=== PATIENT | female | born 1980 | race Caucasian/White ===

== ENCOUNTER → 2019-10-01 13:52 | Outpatient (BNVA) | payer BC, SELFPAY | PROVIDERS: Family Provider Family Medicine; PCP Family Medicine; Visit Provider Nurse Practitioner | DX: F33.2 Major depressive disorder, recurrent severe without psychotic features (principal); F41.1 Generalized anxiety disorder | CPT/HCPCS: 99213 ==

== ENCOUNTER → 2019-12-12 12:37 | Outpatient (BNVA) | payer BC, SELFPAY | PROVIDERS: Family Provider Family Medicine; PCP Family Medicine; Visit Provider Counselor Professional | DX: F41.1 Generalized anxiety disorder (principal); F33.2 Major depressive disorder, recurrent severe without psychotic features | CPT/HCPCS: 90834 ==

== ENCOUNTER → 2019-12-23 09:42 | Outpatient (BNVA) | payer BC, SELFPAY | PROVIDERS: Family Provider Family Medicine; PCP Family Medicine; Visit Provider Family Medicine | DX: R19.7 Diarrhea, unspecified (principal); R73.9 Hyperglycemia, unspecified; E87.6 Hypokalemia; K52.9 Noninfective gastroenteritis and colitis, unspecified | CPT/HCPCS: 80053; 83036; 85025 ==

== ENCOUNTER → 2019-12-24 08:51 | Outpatient (BNVA) | payer BC, SELFPAY | PROVIDERS: Family Provider Family Medicine; PCP Family Medicine; Visit Provider Nurse Practitioner | DX: F41.1 Generalized anxiety disorder (principal); F33.2 Major depressive disorder, recurrent severe without psychotic features | CPT/HCPCS: 99213 ==

== ENCOUNTER → 2020-03-18 07:51 | Outpatient (BNVA) | payer BC, SELFPAY | PROVIDERS: Family Provider Family Medicine; PCP Family Medicine; Visit Provider Nurse Practitioner | DX: F33.2 Major depressive disorder, recurrent severe without psychotic features (principal); F41.1 Generalized anxiety disorder; F33.1 Major depressive disorder, recurrent, moderate | CPT/HCPCS: 99214 ==

== ENCOUNTER → 2020-03-24 09:11 | Outpatient (BNVA) | payer BC, SELFPAY | PROVIDERS: Family Provider Family Medicine; PCP Family Medicine; Visit Provider Family Medicine | DX: R73.9 Hyperglycemia, unspecified (principal) | CPT/HCPCS: 36416; 82962; 83036 ==

== ENCOUNTER → 2020-04-24 07:54 | Outpatient (BNVA) | payer BC, SELFPAY | PROVIDERS: Family Provider Family Medicine; PCP Family Medicine; Visit Provider Nurse Practitioner | DX: F41.1 Generalized anxiety disorder (principal); F33.2 Major depressive disorder, recurrent severe without psychotic features | CPT/HCPCS: 99213 ==

== ENCOUNTER → 2020-07-27 07:47 | Outpatient (BNVA) | payer BC, SELFPAY | PROVIDERS: Family Provider Family Medicine; PCP Family Medicine; Visit Provider Nurse Practitioner | DX: F33.2 Major depressive disorder, recurrent severe without psychotic features (principal); F41.1 Generalized anxiety disorder | CPT/HCPCS: 99213 ==

== ENCOUNTER → 2020-10-21 07:46 | Outpatient (BNVA) | payer BC, SELFPAY | PROVIDERS: Family Provider Family Medicine; PCP Family Medicine; Visit Provider Nurse Practitioner | DX: F33.2 Major depressive disorder, recurrent severe without psychotic features (principal); F41.1 Generalized anxiety disorder | CPT/HCPCS: 99214 ==

== ENCOUNTER → 2021-01-20 07:57 | Outpatient (BNVA) | payer BC, SELFPAY | PROVIDERS: Family Provider Family Medicine; PCP Family Medicine; Visit Provider Nurse Practitioner | DX: F41.1 Generalized anxiety disorder (principal); F33.2 Major depressive disorder, recurrent severe without psychotic features | CPT/HCPCS: 99214 ==

== ENCOUNTER 2021-08-24 08:44 | Outpatient (CLI) | payer BC, SELFPAY ==
--- NOTE | 2021-08-24 09:00 | MM_ITS ---
WS: [id number] BILATERAL DIGITAL SCREENING MAMMOGRAPHY WITH CAD CLINICAL INFORMATION: Z12.31 - Encounter for screening mammogram for malignant ... HISTORY: Screening mammogram. Right breast soreness COMPARISON: TECHNIQUE: Bilateral CC and MLO views. FINDINGS: The breasts are composed of heterogeneous fibroglandular density tissue, which can limit the detectio n of small underlying mass lesions. No suspicious mass, asymmetry, calcifications, or architectural d istortion. No evidence of malignancy. MM/[place] [id number] IMPRESSION: BI-RADS: 1-Negative FOLLOW UP: 1 Year Follow-up Recommend return to annual screening mammography.
== END 2021-08-24 08:45 | disposition home or self-care (01) ==
LOC: RADSHAW 08:48
PROVIDERS: PCP Family Medicine; Visit Provider Nurse Practitioner Family
DX: Z12.31 Encounter for screening mammogram for malignant neoplasm of breast (principal)
CPT/HCPCS: 77067

== ENCOUNTER → 2021-09-21 07:56 | Outpatient (BNVA) | payer OTHER, SELFPAY | PROVIDERS: PCP Family Medicine; Visit Provider Nurse Practitioner Family | DX: R10.11 Right upper quadrant pain (principal) | CPT/HCPCS: 80053; 82150; 83690; 85025 ==

== ENCOUNTER 2021-09-27 09:00 | Outpatient (CLI) | payer OTHER, SELFPAY ==
--- NOTE | 2021-09-27 09:30 | US_ITS ---
WS: [id number] ULTRASOUND ABDOMEN LIMITED CLINICAL INFORMATION: R10.11 - Right upper quadrant pain COMPARISON: 2006 FINDINGS: Liver Size: Normal. Craniocaudal length: 14.9 cm. Echogenicity: Coarse Surface nodularity: None. Mass (size and location): None. Bile ducts Intrahepatic ducts: Normal. Common bile duct diameter: 0.6 cm. Gallbladder appears contracted. Cholelithiasis with gallbladder wall thickening and edema. Gallbladder wall thickening is similar to 2006. Gallstones: Present Gallbladder sludge: None. Gallbladder wall thickenin.2 mm Pericholecystic fluid: Present Pancreas Normal as visualized. Right kidney: Normal. Hydronephrosis: None. Size: 11.2 cm x 4.7 cm x 4.6 cm. Abdominal aorta and IVC Visualized portions are normal. Ascites: None. US/US gall bladder [id number] IMPRESSION: 1. Mild diffuse fatty infiltration the liver. 2. Cholelithiasis. Gallbladder wall thickening with edema. Gallbladder wall th ickening is similar in appearance to 2006. Recommend correlation for cholecysti tis. 3. No hydronephrosis in right kidney.
== END 2021-09-27 09:01 | disposition home or self-care (01) ==
LOC: RAD 09:02
PROVIDERS: PCP Family Medicine; Visit Provider Nurse Practitioner Family
DX: R10.11 Right upper quadrant pain (principal); K76.0 Fatty (change of) liver, not elsewhere classified; K80.20 Calculus of gallbladder without cholecystitis without obstruction
CPT/HCPCS: 76705

== ENCOUNTER → 2021-10-06 10:22 | Outpatient (BNVA) | payer OTHER, SELFPAY | PROVIDERS: PCP Family Medicine; Visit Provider Surgery | DX: Z20.822 Contact with and (suspected) exposure to COVID-19 (principal); Z11.52 Encounter for screening for COVID-19 | CPT/HCPCS: 87635 ==

== ENCOUNTER 2021-10-12 05:50 | Day surgery (SDC) | payer OTHER, SELFPAY ==
[2021-10-11 13:42] VITALS: BMI 31.6
[2021-10-12] VITALS (11 sets, daily range): BP systolic 122–163; BP diastolic 72–106; PULSE 95–123; RESP 12–22; TEMP 36.2–36.9; O2SAT 90–98
--- NOTE | 2021-10-12 06:08 | W.PM.OPSUD ---
Surgery/Procedure H&P Update DATE OF PROCEDURE: October 12, 2021 DATE H&P PERFORMED: 09/30/21 CHANGES TO PREVIOUS DOCUMENTATION: Patient is down from 208 pounds to 187 IBs PREOP DIAGNOSIS: Symptomatic cholelithiasis PRIMARY INDICATION FOR PROCEDURE: Symptomatic cholelithiasis PLANNED PROCEDURE: Operation Date: 10/12/21 07:00 Proposed Procedures p Laparoscopic Cholecystectomy 18499 R10.11(Not Applicable) - Jorge Ruano MD
[2021-10-12] MEDS: sodium chloride 0.9% 1,000 ML 30 ML IV (06:30)
[2021-10-12] MEDS: acetaminophen 1,000 MG/100 ML PIGGYBACK 400 MG IV (06:30)
--- NOTE | 2021-10-12 06:36 | ANES.PREANE2 ---
Pre-Anesthetic Assessment Height/Weight: Height 1.73 m Weight 94.347 kg Temp Pulse Resp BP Pulse Ox 97.1 F L 104 H 18 122/82 98 10/12/21 06:02 10/12/21 06:02 10/12/21 06:02 10/12/21 06:02 10/12/21 06:02 Preop Diagnosis: Symptomatic cholelithiasis Operation Date: 10/12/21 07:00 Proposed Procedures p Laparoscopic Cholecystectomy 02038 R10.11(Not Applicable) - Jorge Ruano MD Was Clonidine taken within 24 hours: N/A Last intake: Intake Last Liquid Date 10/11/21 Last Liquid Time 18:00 Last Solid Date 10/11/21 Last Solid Time 18:00 Social No alcohol and No tobacco Exam alert, oriented x 3, clear to auscultation bilaterally and regular rate & rhythm Airway Submandibular: within normal limits Cervical ROM: within normal limits Mallampati: Class I Dentition: full History/ROS No significant history except as noted Pulmonary None reported CV/HEM None reported None reported Hepatic None reported GI Cholelithiasis Metabolic None reported Musc/skel None reported Neuropsych Depression Anesthetic Plan ASA status: 2 Anesthesia: Anesthesia Evaluation and General Risk of > 500 ml blood loss (7ml/kg in children): No Medications/Allergies Home Medications Medication Instructions Recorded Confirmed Last Taken Type lysine 500 mg tablet 500 mg PO DAILY tab 10/01/19 10/12/21 10/11/21 History multivitamin 1 tab PO QAM 12/23/19 10/12/21 10/11/21 History Bacillus coagulans 10 billion cell 1 cell PO DAILY cap 04/14/21 10/12/21 10/11/21 History capsule,delayed release (Probiotic (B. coagulans)) buspirone 10 mg tablet 10 mg PO BID #360 tab 07/21/21 10/12/21 10/11/21 Rx venlafaxine 150 mg 150 mg PO QAM #90 cap 07/21/21 10/12/21 10/11/21 Rx capsule,extended release 24 hr (Effexor XR) venlafaxine 75 mg capsule,extended 75 mg PO DAILY #90 cap 07/21/21 10/12/21 10/11/21 Rx release 24 hr (Effexor XR) quetiapine 50 mg tablet (Seroquel) 75 mg PO BEDTIME 10/11/21 10/12/21 10/11/21 History Allergies Allergy/AdvReac Type Severity Reaction Status Date / Time No Known Allergies Allergy Verified 10/12/21 06:17 Current Medications Generic Name Dose Route Start Last Admin Trade Name Jluisq PRN Reason Stop Dose Admin Sodium Chloride 1,000 mls @ 30 mls/hr 10/12/21 06:00 10/12/21 06:30 Sodium Chloride 0.9% IV 10/13/21 05:59 30 mls/hr .Q24H HERIBERTO Administration PFSH Anesthesia Medical History Generalized anxiety disorder Major depressive disorder, recurrent severe without psychotic features Psychiatric care Family History Grandmother Cancer Social History Smoking and tobacco status: never smoked Alcohol intake: never Data Anesthesia Cardiac Studies: No Data to Display
[2021-10-12] MEDS: heparin 5,000 unit/mL INJ 1 mL 2000 UNIT SUBCUT (06:44)
[2021-10-12] MEDS: ampicillin-sulbactam 3 GM in sodium chloride 0.9% (plus) 50 ML IV (07:00)
[2021-10-12] MEDS: lidocaine 2% INJ 20 mL INJECTION (07:33)
--- NOTE | 2021-10-12 08:27 | P.OP_ITS ---
Operative Report Date of procedure: October 12, 2021 Pre-op diagnosis: Preop Diagnosis Symptomatic cholelithiasis Post-op diagnosis: Acute on top of chronic cholecystitis Post-op findings: Fatty liver Procedure done: Laparoscopic cholecystectomy Implants: 2 pieces of Surgicel at the gallbladder fossa Specimens removed/disposition: Gallbladder and contents Surgeon: Jorge Ruano MD Technical Solution Architect: Surgical toi Amin and Cristian anesthesia technician student Clarisa Anesthesia: General (GETA ANESTHESIA TECHNICIAN Will smart) Estimated blood loss: 20 IV fluids: 900 Procedure: Patient was identified in the holding area and taken back to the operative suite, placed in supine position intubated by anesthesia . Time-out was done verifying the patient's name/date of /planned procedure and destination after the procedure, all were in agreement. SCDs confirmed to be functioning, preoperative antibiotics administered per protocol, and beta marisa protocol was confirmed. Patient was appropriately secured to the table, footboard was applied to the OR table, before prep and drape anesthesia was asked to tilt the table back and forth to make sure that the patient is appropriately secured and she was. Prep and drape of the abdomen was done under the usual sterile technique, followed by that supraumbilical skin incision,skin incision was done by a 15 blade knife, and stay sutures were applied to the fascia and Shelley trocar technique was used to enter the abdominal without injuring any abdominal viscera, started by low flow gas insufflation followed by a high flow, started with a 10 mm laparoscope and under direct vision there was no evidence of any injuries, the scope then switched to a 30? ,10 millimeter scope and under direct visualization 5 millimeter trocar was inserted in the epigastric region followed by two 5 mm trocars were inserted in the right upper quadrant that was done after injection of local lidocaine 2% at all incision sites. Gallbladder showed acute on top of chronic cholecystitis and Fatty Liver Patient was then positioned in the head up and tilted to the left. Ratcheted forceps were introduced into the lateral most 5mm port and was applied unto the fundus of the gallbladder cephalad and using Bullet forceps the infundibulum of the gallbladder was retracted laterally. Retraction was not enough and had to use 5 mm tenaculum. Using [place] forceps then L-hook cautery to dissect the peritoneum overlying the Calot's triangle which was then opened medially and laterally until the cystic duct and the cystic artery were skeletonized. Dissection was carried along the body of the gallbladder and after ensuring critical view of safety was identfied. Noticed that the gallbladder was edematous and showed acute on top of chronic changes. Cystic duct and cystic artery where seen connected to the gallbladder. Clips were applied on the cystic duct towards the common bile duct 1 towards the gallbladder then divided is in sharp scissors, 2 clips were then applied onto the cystic artery and 1 towards the gallbladder and divided by sharp scissors. Yet noticed that the cystic duct was thickened and I elected to apply Endoloop PDS x2 to secure the stump after clip application. The cystic duct was milked making sure no residual stones prior to ligation. Dissection was then carried along of the gallbladder from the gallbladder fossa using cautery as well as sharp dissection with heat energy. The gallbladder then was dissected out from the gallbladder fossa totally , cholecystectomy was then achieved and was placed in an Endo Catch bag and then retrieved from the Shelley trocar site under direct visualization using a 5 mm 30? scope through the epigastric trocar, specimen was then passed to the circulating nurse to go for permanent pathology,irrigation and hemostasis was done to the gallbladder fossa after hemostasis was secured, final survey laparoscopy was done that showed no injuries. Suction irrigation was obtained The supraumbilical fascial defect was then closed using interrupted number one PDS sutures using a fascial closure device ;Nahid Montaño under direct visualization,following that Gas was allowed to deflate,Trocars were then taken out under direct vision there was no evidence of bleeding. Specimen was passed to the circulating nurse for permanent pathology. No drains were placed and the supraumbilical incision as well as all trocar sites were closed by 3/0 Vicryl followed by 4-0 Monocryl to approximate the skin edges of the incisions , dressing was applied in the form of surical glue and the patient patient got extubated and was taken to recovery area in a stable condition. Count of sponges,needles and instruments were completed at the end of the procedure I was present for the whole entire procedure.
[2021-10-12] MEDS: fentaNYL 50 mcg/mL INJ 2mL IVP (08:56)
[2021-10-12] MEDS: HYDROcodone-acetaminophen 5-325 mg Tablet 1 TAB PO (09:35)
--- NOTE | 2021-10-12 13:01 | ANE.PACU2 ---
Inpatient post-anesthesia follow up: Airway intact: Yes Vital signs: Temperature 98.4 F Pulse Rate 98 Respiratory Rate 18 Blood Pressure 138/106 Pulse Oximetry 96 Oxygen Delivery Me thod Nasal Cannula Oxygen Flow Rate 2 Fraction of Inspir ed Oxygen Hydration adequate: Yes Nausea and vomiting: No Mental status: Baseline
== END 2021-10-12 10:50 | disposition home or self-care (01) ==
PROVIDERS: PCP Family Medicine; Visit Provider Surgery
PROC: 0FT44ZZ Resection of Gallbladder, Percutaneous Endoscopic Approach (ICD-10-PCS; CPT 47562; principal; 2021-10-12 07:00)
DX: K80.10 Calculus of gallbladder with chronic cholecystitis without obstruction (principal); K76.0 Fatty (change of) liver, not elsewhere classified; F41.9 Anxiety disorder, unspecified; F33.9 Major depressive disorder, recurrent, unspecified
CPT/HCPCS: 47562; 88304; J0295; J1100; J1644; J2405; J2704; J2710; J3010; J3490; J7030

== ENCOUNTER → 2022-11-03 08:49 | Outpatient (BNVA) | payer OTHER, SELFPAY | PROVIDERS: PCP Family Medicine; Visit Provider Nurse Practitioner | DX: Z79.899 Other long term (current) drug therapy (principal) | CPT/HCPCS: 80061; 83036 ==

== ENCOUNTER → 2024-07-09 10:04 | Outpatient (BNVA) | payer OTHER, SELFPAY | PROVIDERS: PCP Nurse Practitioner Family; Visit Provider Nurse Practitioner Family | DX: Z79.899 Other long term (current) drug therapy (principal) | CPT/HCPCS: 80053; 80061; 82306; 82607; 83036; 83721; 84443; 85025 ==

== ENCOUNTER → 2024-07-12 11:08 | Outpatient (BNVA) | payer OTHER, SELFPAY | PROVIDERS: PCP Nurse Practitioner Family; Visit Provider Nurse Practitioner Family | DX: R41.3 Other amnesia (principal) | CPT/HCPCS: 84446 ==

== ENCOUNTER → 2024-07-19 09:30 | Outpatient (BNVA) | payer OTHER, SELFPAY | PROVIDERS: PCP Nurse Practitioner Family; Visit Provider Nurse Practitioner Family | DX: Z12.4 Encounter for screening for malignant neoplasm of cervix (principal); N89.8 Other specified noninflammatory disorders of vagina | CPT/HCPCS: 87081; 87205; 88175 ==

== ENCOUNTER 2024-07-30 15:47 | Outpatient (CLI) | payer OTHER, SELFPAY ==
--- NOTE | 2024-07-30 16:00 | MR_ITS ---
WS: [id number] MRI HEAD WITHOUT CONTRAST TECHNIQUE: Sagittal T1, T2 axial, T2 axial FLAIR, axial and coronal T1 images, axial susceptibility w eighted imaging, axial diffusion weighted images, and coronal T2 images were obtained. CLINICAL INFORMATION: R41.3 - Other amnesia COMPARISON: None. FINDINGS: No evidence of restricted diffusion to suggest acute ischemia. Ventricular system and basal cisterns are patent. No suspicious intracranial signal abnormalities. Normal posterior fossa. Normal vascular flow voids at the skull base. No extra-axial fluid collection s. No evidence of mass or mass effect. Incidental perivascular spaces in the basal ganglia. Paranasal sinuses and mastoid air cells are well aerated. Normal posterior nasopharynx. No hemosiderin on the susceptibly weighted images. Normal opt ic chiasm and pituitary infundibulum. Temporal lobes and hippocampal formations are normal in appeara nce. MR/MR head wo con* [id number] IMPRESSION: 1. No evidence of restricted diffusion to suggest acute ischemia. 2. No suspicious intracranial signal abnormalities. Normal shaver-white differen tiation. 3. Normal posterior fossa. 4. No hemosiderin on the susceptibly weighted images. 5. Temporal lobes and hippocampal formations are normal in appearance. 6. No other suspicious findings.
== END 2024-07-30 15:48 | disposition home or self-care (01) ==
LOC: RAD 15:48
PROVIDERS: PCP Nurse Practitioner Family; Visit Provider Nurse Practitioner Family
DX: R41.3 Other amnesia (principal)
CPT/HCPCS: 70551

== ENCOUNTER 2024-08-07 13:20 | Outpatient (CLI) | payer OTHER, SELFPAY ==
--- NOTE | 2024-08-07 13:20 | MM_ITS ---
WS: [id number] BILATERAL 3D TOMOSYNTHESIS DIGITAL SCREENING MAMMOGRAPHY WITH CAD CLINICAL INFORMATION: Z12.39 - Encounter for other screening for malignant neop... HISTORY: Screening mammogram. No current complaints. COMPARISON: 2020 TECHNIQUE: Bilateral CC and MLO views. FINDINGS: The breasts are composed of heterogeneous fibroglandular density tissue, which can limit the detectio n of small underlying mass lesions. No suspicious mass, asymmetry, calcifications, or architectural d istortion. No evidence of malignancy. A few tiny incidental punctate calcifications. MM/MM [facility] tomosynthesis [id number] IMPRESSION: DENSITY: The breasts are heterogeneously dense, which may obscure small masses. BI-RADS: 2 - Benign FOLLOW UP: 1 Year Follow-up Recommend return to annual screening mammography.
== END 2024-08-07 13:21 | disposition home or self-care (01) ==
PROVIDERS: PCP Nurse Practitioner Family; Visit Provider Nurse Practitioner Family
DX: Z12.31 Encounter for screening mammogram for malignant neoplasm of breast (principal); R92.333 Mammographic heterogeneous density, bilateral breasts
CPT/HCPCS: 77063; 77067

== ENCOUNTER → 2025-07-14 14:05 | Outpatient (BNVA) | payer OTHER, SELFPAY | PROVIDERS: PCP Nurse Practitioner Family; Referring Provider Specialist; Visit Provider Podiatrist Foot & Ankle Surgery | DX: M25.571 Pain in right ankle and joints of right foot (principal); M92.61 Juvenile osteochondrosis of tarsus, right ankle; M76.61 Achilles tendinitis, right leg | CPT/HCPCS: 73610 ==

== ENCOUNTER 2025-07-17 11:00 | Outpatient (RCR) | payer OTHER, SELFPAY | END 2025-07-18 23:59 | disposition home or self-care (01) | LOC: GPT 11:00 | PROVIDERS: PCP Nurse Practitioner Family; Visit Provider Podiatrist Foot & Ankle Surgery | DX: M25.571 Pain in right ankle and joints of right foot (principal) | CPT/HCPCS: 97161 ==

== ENCOUNTER 2025-08-12 16:04 | Outpatient (RCR) | payer OTHER, SELFPAY | END 2025-08-17 23:59 | disposition home or self-care (01) | LOC: GPT 16:04 | PROVIDERS: PCP Nurse Practitioner Family; Visit Provider Podiatrist Foot & Ankle Surgery | DX: M25.571 Pain in right ankle and joints of right foot (principal); M76.61 Achilles tendinitis, right leg | CPT/HCPCS: 97110; 97140 ==

== ENCOUNTER 2025-09-08 16:08 | Outpatient (RCR) | payer OTHER, SELFPAY | END 2025-09-17 23:59 | disposition home or self-care (01) | LOC: GPT 16:08 | PROVIDERS: PCP Nurse Practitioner Family; Visit Provider Podiatrist Foot & Ankle Surgery | DX: M25.571 Pain in right ankle and joints of right foot (principal) | CPT/HCPCS: 97110; 97112; 97140; 97164 ==